=== PATIENT | male | born 1995 | race Caucasian/White ===

== ENCOUNTER 2017-11-27 07:45 | Emergency (ER) | payer OTHER ==
--- NOTE | 2017-11-27 08:32 | ER Report ---
History and Physical Time Seen By MD: 07:50 Hx. of Stated Complaint: PATIENT TWISTED HIS LEFT KNEE PLAYING BASKETBALL YESTERDAY AFTERNOON HPI/ROS CHIEF COMPLAINT: knee pain HISTORY OF PRESENT ILLNESS: Patient is 22-year-old male who was playing [employer] yesterday. He came down on his left leg, twisting with another player. He felt his knee abduct laterally and his left ankle twist. Patient fell onto ground patient was unable to get himself up and his friends helped carry him off the court. Patient was ultimately able to bear weight though notes that last night in bed the knee was uncomfortable. This morning patient notes that when he bears weight he has lateral left knee pain. He does not feel instability has not had further falls. He is not have other injuries including head injury, loss of consciousness or other pain. REVIEW OF SYSTEMS: Respiratory: No cough, no dyspnea. Cardiovascular: No chest pain, no palpitations. Gastrointestinal: No vomiting, no abdominal pain. Musculoskeletal: No back pain. Remainder of the 14 system rev: Yes Allergies: Coded Allergies: No Known Drug Allergies (Unverified , 11/27/17) Home Meds No Active Prescriptions or Reported Meds Reviewed Nurses Notes: Yes Hx Substance Use Disorder: No Hx Alcohol Use: No Constitutional Vital Sign - Last 24 Hours 11/27/17 11/27/17 07:49 08:33 Temp 97.9 Pulse 53 51 Resp 20 16 B/P (MAP) 150/72 130/66 (87) Pulse Ox 94 95 O2 Delivery Room Air Room Air Physical Exam General appearance: Alert no distress. Left knee: There is no significant swelling. There is no effusion. There is no obvious deformity of the knee. There is no tenderness to the patella. The joint is stable with no comparable ligamentous laxity to the knee. There is no tenderness proximal or distal to the knee. Patient has tenderness at LCL of the left knee. He has negative anterior drawer, negative Bria's, negative Chino's testing. He does not have any joint instability. Neurologic exam: The patient has normal sensation distal to the injury. Vascular exam: Normal pulses and capillary refill in the foot [ DIFFERENTIAL DIAGNOSIS: After history and physical exam differential diagnosis was considered for knee injury including sprain, fracture, meniscus injury and soft tissue injury. Medical Decision Making ED Course/Re-evaluation ED Course X-ray unremarkable for acute fracture. Patient is uncomfortable with ambulation without support. Patient is given knee immobilizer and crutches and ambulates mu more comfortably. Recommend rice. Discharge with strict return precautions. Decision to Disposition Date: Nov 27, 2017 Decision to Disposition Time: 08:29 Depart Departure Latest Vital Signs Vital Signs Date Time Temp Pulse Resp B/P (MAP) Pulse Ox O2 Delivery O2 Flow Rate FiO2 11/27/17 08:33 51 16 130/66 (87) 95 Room Air 11/27/17 07:49 97.9 Impression: Primary Impression: Knee LCL sprain Condition: Improved Disposition: HOME OR SELF-CARE New Scripts No Active Prescriptions or Reported Meds Patient Instructions: Knee Sprain (ED) Additional Instructions: You may use immobilizer as needed. When you do not feel the need for as much support, a neoprene knee brace or komal wrap should be sufficient. Ice the area for 20 min at a time. You may use ibuprofen 600mg every 8 hours and tylenol 650mg every 4 hours for pain. Follow up with primary physician for further evaluation if pain not improving. Return for uncontrolled pain or any concerns. Problem Qualifiers Primary Impression: Knee LCL sprain Encounter type: initial encounter Laterality: left Qualified Codes: S83.422A - Sprain of lateral collateral ligament of left knee, initial encounter YOLANDA TOMAS MD Nov 27, 2017 08:32
[2017-11-27 08:33] VITALS: BP 130/66
--- NOTE | 2017-11-27 08:39 | RADIOLOGY IMAGING REPORT ---
FACILITY: [facility] PATIENT NAME: Brennan Singleton : 1995 MR: [id number] V: [id number] EXAM DATE: ORDERING PHYSICIAN: YOLANDA TOMAS TECHNOLOGIST: Location: [facility] Patient: Brennan Singleton : 1995 Visit/Account:[id number] Date of Sevice: 11/27/2017 KNEE 3 VIEW LEFT COMPARISON: None. HISTORY: lateral tibial plateau tenderness . Left knee pain, 510, hurt knee yesterday playing basket ball. TECHNIQUE: 3 views FINDINGS: BONES: There is a 5 mm chronic bone fragment closely opposed to the lower pole of the patella which is nonspecific but could be due to remote trauma. No significant arthropathy, acute fracture, malalig nment, or significant osseous lesion. SOFT TISSUES: Negative. No visible soft tissue swelling. EFFUSION: None suggested. OTHER: Negative. IMPRESSION: No acute fracture or malalignment in the left knee. Report Dictated By: Omer Epstein at 11/27/2017 8:33 AM Report E-Signed By: Omer Epstein at 11/27/2017 8:35 AM WSN:[id number]
== END 2017-11-27 08:37 | disposition home or self-care (01) ==
LOC: ER 08:07
DX: S83.422A Sprain of lateral collateral ligament of left knee, initial encounter (principal)
CPT/HCPCS: 73562; 99283; L1830